=== PATIENT | male | born 1955 | race Caucasian/White ===

== ENCOUNTER 2018-12-27 14:07 | Inpatient (IN) | payer OTHER ==
[2018-12-27 15:44] VITALS: BMI 27.8
--- NOTE | 2018-12-27 17:29 | HP ---
CIWA Score Nausea/Vomitin-No Nausea/No Vomiting Muscle Tremors: 7-Severe,w/o Arm Extended Anxiety: 2 Agitation: 2 Paroxysmal Sweats: No Perspiration Orientation: 0-Oriented Tacttile Disturbances: 0-None Auditory Disturbances: 0-None Visual Disturbances: 0-None Headache: 0-None Present CIWA-Ar Total Score: 11 - Admission Criteria [facility]ASAS Guidelines: Admission for Medically Managed Detox: Requires at least one of the followin. CIWA greater than 12 2. Seizures within the past 24 hours 3. Delirium tremens within the past 24 hours 4. Hallucinations within the past 24 hours 5. Acute intervention needed for co occurring medical disorder 6. Acute intervention needed for co occurring psychiatric disorder 7. Severe withdrawal that cannot be handled at a lower level of care (continued vomiting, continued diarrhea, abnormal vital signs) requiring intravenous medication and/or fluids 8. Admission ROS [facility] - [facility] Allergies/Adverse Reactions: Allergies Allergy/AdvReac Type Severity Reaction Status Date / Time No Known Allergies Allergy Verified 12/27/18 15:40 History of Present Illness: 63 y/o M with history of alcohol abuse presenting to [facility] [place] for detox/ rehab. He has been drinking for the past 49 years. He usually drinks at least 2 pints of vodka daily with last drink 3 days ago. He endorses history of blackouts ( most recent 2 weeks ago) resulting in fall and head trauma (went to hospital workup was negative). NO seizures from withdrawals. Been through detox roughly 30x with last detox 1 yr ago. He has gone through rehab many time with most recent in 2019 at [facility] for 7 month. He left because of "poor care". NO other substance use. Pt feels dizzy, tremoulous, anxious, difficulty sleeping, diarrhea ( 6x) and denies any other symptoms PMH: recent testicular cancer diagnosis. scheduled to see specialist after detox Psych Hx: none PSH: cataract surgery PE: VS Temp : 98.9 BP 148/85 HR 98 RR 18 CIWA 11 Utox BZO General : anxious HEENT: PERRLA, moist membrane Lung: VBS b/l Heart : RRR no MRG Abdomen : +BS , NTND Extremities: unilateral leg swelling on the right, 1+ edema in the R distal leg. 2+ pulses Plan: alcohol detox: librium protocol - Ebola screening Have you traveled outside of the country in the last 21 days: No Have you had contact with anyone from an Ebola affected area: No Do you have a fever: No Patient History - Smoking Cessation Smoking history: Never smoked Initiated information on smoking cessation: No - Substances abused Alcohol Substance route: Oral Frequency: Daily Amount used: 2 pints of voldka Age of first use: 15 Date of last use: 12/25/18 Admission Physical Exam [facility] - Vital Signs Vital Signs: Vital Signs - 24 hr 12/27/18 15:31 Temperature 98.9 F Pulse Rate 98 H Respiratory 18 Rate Blood Pressure 148/85 Cleared for Admission [facility] - Detox or Rehab [facility] Level of Care: Medically Supervised Breathalyzer - Breathalyzer Breathalyzer: 0 Urine Drug Screen - Test Device Lot number: [id number] Expiration date: 09/05/20 - Control Is test valid?: Yes - Results Drug screen NEGATIVE: No Urine drug screen results: BZO-Benzodiazepines Inpatient Rehab Admission - Rehab Decision to Admit Inpatient rehab admission?: No
--- NOTE | 2018-12-27 18:10 | PN ---
Teaching Attending Note Name of Resident: Noelle Otto ATTENDING PHYSICIAN STATEMENT I saw and evaluated the patient. I reviewed the resident's note and discussed the case with the resident. I agree with the resident's findings and plan as documented. SUBJECTIVE:63 y.o. male w/ etoh use , reports 2 pints vodka/ day , reports tremors if not drinking , reports blackouts , most recent 2 weeks ago resulting in fall and head trauma (went to hospital workup was negative). NO seizures from withdrawals. Sober x 7 mo [facility] / denies tobacco use. PMH: recent testicular cancer diagnosis. scheduled to see specialist after detox OBJECTIVE: wnwd , tremulous , anxious , josé miguel hands edema , r foot & ankle pedal edema neg Homans + clubbing x 20 Vital Signs - 24 hr 12/27/18 15:31 Temperature 98.9 F Pulse Rate 98 H Respiratory 18 Rate Blood Pressure 148/85 ASSESSMENT AND PLAN: AUD - Librium detox .
[2018-12-27] MEDS ORDERED: hydrOXYzine PAMOATE 25 MG CAPSULE (FP) PO PRN (18:15)
[2018-12-27] MEDS ORDERED: MAG HYDROX/AL HYDROX/SIMETH 30 ML UNIT-DOSE CUP PO PRN (18:15)
[2018-12-27] MEDS ORDERED: chlordiazePOXIDE HCL 25 MG CAPSULE PO PRN (18:15)
[2018-12-27] MEDS ORDERED: MAGNESIUM HYDROX 2400MG/30ML ORAL SUSPENSION 30 ML CUP PO PRN (18:15)
[2018-12-27] MEDS ORDERED: IBUPROFEN 400 MG TABLET (FP) PO PRN (18:15)
[2018-12-27] MEDS ORDERED: ACETAMINOPHEN 325 MG TABLET (FP) PO PRN ×2 (18:15)
[2018-12-27] MEDS ORDERED: MAGNESIUM CITRATE 300 ML BOTTLE PO PRN (18:15)
[2018-12-27] MEDS ORDERED: BISMUTH SUBSALICYLATE 524 MG/30 ML UD PO PRN (18:15)
[2018-12-27] MEDS ORDERED: chlordiazePOXIDE HCL 25 MG CAPSULE PO ONE (19:15)
[2018-12-27] MEDS: MELATONIN 5 MG TABLETS PO PRN (22:04)
[2018-12-27] MEDS: chlordiazePOXIDE HCL 25 MG CAPSULE PO SCH (22:04)
[2018-12-27] MEDS: THIAMINE HCL 100 MG TABLET (FP) PO SCH (22:04)
[2018-12-28] MEDS: chlordiazePOXIDE HCL 25 MG CAPSULE PO SCH ×4 (05:12→22:21)
[2018-12-28 09:56] LABS: ALBUMIN 3.3 g/dl (3.4-5.0); BILIRUBIN,TOTAL 0.7 mg/dL (0.2-1); BLOOD UREA NITROGEN 6.5 mg/dL (7-18); CALCIUM 9.2 mg/dL (8.5-10.1); CREATININE 0.6 mg/dL (0.55-1.3); POTASSIUM 3.7 mmol/L (3.5-5.1); TOT PROT 6.9 g/dl (6.4-8.2)
[2018-12-28 10:05] LABS: HEMATOCRIT 38.5 % (35.4-49); HEMOGLOBIN 12.6 GM/dL (11.7-16.9); MCH 31.3 pg (25.7-33.7); MCHC 32.7 g/dl (32.0-35.9); MEAN CELL VOLUME 95.6 fl (80-96); MEAN PLT VOLUME 8.4 fl (7.5-11.1); PLATELET COUNT 226 K/MM3 (134-434); RBC 4.03 M/mm3 (4.00-5.60); WHITE BLOOD COUNT 7.1 K/mm3 (4.0-10.0)
[2018-12-28] MEDS: PRENATAL VITAMINS W/ FOLIC ACID TABLET (FP) PO SCH (10:15)
--- NOTE | 2018-12-28 10:30 | PN ---
S CIWA - CIWA Score Nausea/Vomitin-No Nausea/No Vomiting Muscle Tremors: 3 Anxiety: 2 Agitation: 2 Paroxysmal Sweats: 2 Orientation: 0-Oriented Tacttile Disturbances: 0-None Auditory Disturbances: 0-None Visual Disturbances: 0-None Headache: 0-None Present CIWA-Ar Total Score: 9 BHS Progress Note (SOAP) Subjective: sweats shakes cough body aches Objective: 12/28/18 10:28 Vital Signs Temperature 97.9 F 12/28/18 09:37 Pulse Rate 96 H 12/28/18 09:37 Respiratory Rate 16 12/28/18 09:37 Blood Pressure 157/91 12/28/18 09:37 O2 Sat by Pulse Oximetry (%) Laboratory Tests 12/28/18 12/28/18 08:00 08:00 WBC 7.1 RBC 4.03 Hgb 12.6 Hct 38.5 MCV 95.6 MCH 31.3 MCHC 32.7 RDW 16.0 H Plt Count 226 MPV 8.4 Sodium 138 Potassium 3.7 Chloride 105 Carbon Dioxide 26 Anion Gap 7 L BUN 6.5 L Creatinine 0.6 Est GFR (CKD-EPI)AfAm 124.89 Est GFR (CKD-EPI)NonAf 107.76 Random Glucose 78 Calcium 9.2 Total Bilirubin 0.7 AST 67 H ALT 27 Alkaline Phosphatase 47 Total Protein 6.9 Albumin 3.3 L aaox3 lying in bed no acute distress Assessment: 12/28/18 10:29 withdrawals noted lungs assessed, CTA. pt c/o dry non productive cough Plan: continue detox increase fluids robitussin prn ordered. pt is aware
[2018-12-28] MEDS: THIAMINE HCL 100 MG TABLET (FP) PO SCH (22:21)
[2018-12-29] MEDS: chlordiazePOXIDE HCL 25 MG CAPSULE PO SCH ×4 (05:46→22:42)
[2018-12-29] MEDS: MENTHOL/PHENOL 1 EACH UD MM PRN (05:47)
[2018-12-29] MEDS: PRENATAL VITAMINS W/ FOLIC ACID TABLET (FP) PO SCH (10:42)
[2018-12-29] MEDS: guaiFENesin 200 MG/10 ML 10 ML UNIT-DOSE CUPS PO PRN ×2 (10:43→17:36)
--- NOTE | 2018-12-29 16:15 | PN ---
S CIWA - CIWA Score Nausea/Vomitin-No Nausea/No Vomiting Muscle Tremors: 3 Anxiety: 3 Agitation: 0-Normal Activity Paroxysmal Sweats: No Perspiration Orientation: 0-Oriented Tacttile Disturbances: 2-Mild Itch/Numbness/Burn Auditory Disturbances: 0-None Visual Disturbances: 2-Mild Sensitivity Headache: 0-None Present CIWA-Ar Total Score: 10 BHS Progress Note (SOAP) Subjective: Anxious, Body Aches, Tremors. Objective: PATIENT A & O X 3. IN NO ACUTE DISTRESS. 12/29/18 16:14 Vital Signs Temperature 98.2 F 12/29/18 13:40 Pulse Rate 86 12/29/18 13:40 Respiratory Rate 16 12/29/18 13:40 Blood Pressure 140/80 12/29/18 13:40 O2 Sat by Pulse Oximetry (%) Laboratory Tests 12/28/18 12/28/18 12/28/18 08:00 08:00 08:00 WBC 7.1 RBC 4.03 Hgb 12.6 Hct 38.5 MCV 95.6 MCH 31.3 MCHC 32.7 RDW 16.0 H Plt Count 226 MPV 8.4 Sodium 138 Potassium 3.7 Chloride 105 Carbon Dioxide 26 Anion Gap 7 L BUN 6.5 L Creatinine 0.6 Est GFR (CKD-EPI)AfAm 124.89 Est GFR (CKD-EPI)NonAf 107.76 Random Glucose 78 Calcium 9.2 Total Bilirubin 0.7 AST 67 H ALT 27 Alkaline Phosphatase 47 Total Protein 6.9 Albumin 3.3 L RPR Titer Nonreactive LABS NOTED. Assessment: 12/29/18 16:14 WITHDRAWAL SYMPTOMS. ELEVATED AST LEVEL. 12/29/18 16:14 Plan: CONTINUE DETOX.
[2018-12-29] MEDS: THIAMINE HCL 100 MG TABLET (FP) PO SCH (22:41)
[2018-12-30] MEDS ORDERED: chlordiazePOXIDE HCL 10 MG CAPSULE PO PRN
[2018-12-30] MEDS: chlordiazePOXIDE HCL 10 MG CAPSULE PO SCH ×4 (06:51→22:22)
[2018-12-30] MEDS: MENTHOL/PHENOL 1 EACH UD MM PRN (06:52)
[2018-12-30] MEDS: PRENATAL VITAMINS W/ FOLIC ACID TABLET (FP) PO SCH (10:17)
[2018-12-30] MEDS: guaiFENesin 200 MG/10 ML 10 ML UNIT-DOSE CUPS PO PRN ×2 (10:19→22:24)
--- NOTE | 2018-12-30 12:46 | PN ---
S CIWA - CIWA Score Nausea/Vomitin-No Nausea/No Vomiting Muscle Tremors: 2 Anxiety: 1-Mildly Anxious Agitation: 2 Paroxysmal Sweats: 2 Orientation: 0-Oriented Tacttile Disturbances: 0-None Auditory Disturbances: 0-None Visual Disturbances: 0-None Headache: 0-None Present CIWA-Ar Total Score: 7 BHS Progress Note (SOAP) Subjective: Sweating, tremor Objective: 12/30/18 12:42 Last Vital Signs Temp Pulse Resp BP Pulse Ox 97.9 F 118 H 20 103/72 12/30/18 09:25 12/30/18 09:25 12/30/18 09:25 12/30/18 09:25 Pulse 118, most likely due to anxiety, patient seems calm sitting on his bed in his room and denies any complaints Laboratory Tests 12/28/18 12/28/18 12/28/18 08:00 08:00 08:00 WBC 7.1 RBC 4.03 Hgb 12.6 Hct 38.5 MCV 95.6 MCH 31.3 MCHC 32.7 RDW 16.0 H Plt Count 226 MPV 8.4 Sodium 138 Potassium 3.7 Chloride 105 Carbon Dioxide 26 Anion Gap 7 L BUN 6.5 L Creatinine 0.6 Est GFR (CKD-EPI)AfAm 124.89 Est GFR (CKD-EPI)NonAf 107.76 Random Glucose 78 Calcium 9.2 Total Bilirubin 0.7 AST 67 H ALT 27 Alkaline Phosphatase 47 Total Protein 6.9 Albumin 3.3 L RPR Titer Nonreactive Labs reviewed: AST 67 (high) Assessment: 12/30/18 12:43 Withdrawal sxs Noted with mild transaminitis and tachycardia Plan: Continue detox Encouraged PO water intake Mild transaminitis: most likely due to chronic alcoholism, encouraged abstinence from alcohol, follow up with PCP for monitoring Tachycardia: most likely due to anxiety, encouraged relaxation, encouraged vistaril prn, monitor vs. Patient seems calm sitting on his bed in his room and denies any complaints. Consider EKG if still tachycardic.
[2018-12-30] MEDS: THIAMINE HCL 100 MG TABLET (FP) PO SCH (22:22)
[2018-12-31] MEDS: chlordiazePOXIDE HCL 10 MG CAPSULE PO SCH ×2 (05:26→17:36)
--- NOTE | 2018-12-31 09:44 | PN ---
[facility] CIWA - CIWA Score Nausea/Vomitin-No Nausea/No Vomiting Muscle Tremors: 1-None Visible, but [place] Anxiety: 1-Mildly Anxious Agitation: 1-Slight > Activity Paroxysmal Sweats: No Perspiration Orientation: 0-Oriented Tacttile Disturbances: 1-Very Mild Itch/Numbness Auditory Disturbances: 0-None Visual Disturbances: 0-None Headache: 1-Very Mild CIWA-Ar Total Score: 5 BHS Progress Note (SOAP) Subjective: alert,irritable,anxious,interrupted sleep Objective: 12/31/18 09:43 Vital Signs Temperature 97.9 F 12/31/18 09:05 Pulse Rate 82 12/31/18 09:05 Respiratory Rate 17 12/31/18 09:05 Blood Pressure 120/66 12/31/18 09:05 O2 Sat by Pulse Oximetry (%) Assessment: 12/31/18 09:43 withdrawal symptom Plan: continue detox librium regimen,discharge in am
[2018-12-31] MEDS: PRENATAL VITAMINS W/ FOLIC ACID TABLET (FP) PO SCH (10:14)
[2018-12-31] MEDS: guaiFENesin 200 MG/10 ML 10 ML UNIT-DOSE CUPS PO PRN (10:16)
[2018-12-31] MEDS: MELATONIN 5 MG TABLETS PO PRN (22:14)
[2018-12-31] MEDS: THIAMINE HCL 100 MG TABLET (FP) PO SCH (22:14)
[2019-01-01] MEDS ORDERED: chlordiazePOXIDE HCL 10 MG CAPSULE PO ONE (05:00)
--- NOTE | 2019-01-01 08:39 | DS ---
[facility] Summary Admission Date: 12/27/18 Discharge Date: 01/01/19 - History Present History: Alcohol Dependence - Physical Exam Results Vital Signs: Vital Signs Temperature 97.9 F 01/01/19 06:00 Pulse Rate 72 01/01/19 06:00 Respiratory Rate 18 01/01/19 06:00 Blood Pressure 118/72 01/01/19 06:00 O2 Sat by Pulse Oximetry (%) Pertinent Admission Physical Exam Findings: pt arrived in withdrawals Vital Signs Temperature 97.9 F 01/01/19 06:00 Pulse Rate 72 01/01/19 06:00 Respiratory Rate 18 01/01/19 06:00 Blood Pressure 118/72 01/01/19 06:00 O2 Sat by Pulse Oximetry (%) Laboratory Tests 12/28/18 12/28/18 12/28/18 08:00 08:00 08:00 WBC 7.1 RBC 4.03 Hgb 12.6 Hct 38.5 MCV 95.6 MCH 31.3 MCHC 32.7 RDW 16.0 H Plt Count 226 MPV 8.4 Sodium 138 Potassium 3.7 Chloride 105 Carbon Dioxide 26 Anion Gap 7 L BUN 6.5 L Creatinine 0.6 Est GFR (CKD-EPI)AfAm 124.89 Est GFR (CKD-EPI)NonAf 107.76 Random Glucose 78 Calcium 9.2 Total Bilirubin 0.7 AST 67 H ALT 27 Alkaline Phosphatase 47 Total Protein 6.9 Albumin 3.3 L RPR Titer Nonreactive pt is aaox3 ambulating no acute distress no s/s of withdrawals - Treatment Hospital Course: Detox Protocol Followed, Detoxed Safely, Responded well, Discharged Condition Good, Rehab Referral Accepted Patient has Accepted a Rehab Referral to: referred to [facility] - Medication Discharge Medications: Ambulatory Orders NK [No Known Home Medication] 12/27/18 - Diagnosis (1) Alcohol dependence with withdrawal, uncomplicated Current Visit: Yes Status: Chronic - AMA Did Patient Leave Against Medical Advice: No
[2019-01-01 09:11] VITALS: BP 104/57; PULSE 79; TEMP 98.1
[2019-01-01] MEDS: PRENATAL VITAMINS W/ FOLIC ACID TABLET (FP) PO SCH (10:25)
== END 2019-01-01 11:00 | disposition home or self-care (01) | DRG 775 ==
LOC: YASAS 14:07 → Y6N 18:26
PROVIDERS: ADMIT Allergy & Immunology; ATTEND Allergy & Immunology
PROC: HZ2ZZZZ Detoxification Services for Substance Abuse Treatment (ICD-10-PCS; principal; 2018-12-27)
DX: F10.230 Alcohol dependence with withdrawal, uncomplicated (principal); C62.90 Malignant neoplasm of unspecified testis, unspecified whether descended or undescended; R00.0 Tachycardia, unspecified
CPT/HCPCS: 36415; 80053; 85027; 86593

== ENCOUNTER 2022-11-06 14:41 | Inpatient (IN) | payer OTHER ==
[2022-11-06 16:24] VITALS: BMI 30.1
[2022-11-06] MEDS ORDERED: BENZONATATE 200 MG CAPSULE PO PRN (17:28)
[2022-11-06] MEDS ORDERED: ONDANSETRON *ODT* 4 MG TABLET SL PRN (17:28)
[2022-11-06] MEDS ORDERED: LORazepam 1 MG TABLET PO PRN (17:28)
[2022-11-06] MEDS ORDERED: IBUPROFEN 400 MG TABLET (FP) PO PRN (17:28)
[2022-11-06] MEDS ORDERED: DICYCLOMINE HCL 10 MG CAPSULE PO PRN (17:28)
[2022-11-06] MEDS ORDERED: NALOXONE HCL 0.4 MG/ML VIAL IM PRN (17:28)
[2022-11-06] MEDS ORDERED: LOPERAMIDE HCL 2 MG CAPSULE PO PRN (17:28)
[2022-11-06] MEDS ORDERED: BACLOFEN 10 MG TABLET (FP) PO PRN (17:28)
[2022-11-06] MEDS ORDERED: POLYETHYLENE GLYCOL (HEALTHYLAX) 3350 17 GM PACKET PO PRN (17:28)
[2022-11-06] MEDS ORDERED: MAGNESIUM HYDROX 2400MG/30ML ORAL SUSPENSION 30 ML CUP PO PRN (17:28)
[2022-11-06] MEDS ORDERED: ACETAMINOPHEN 325 MG TABLET (FP) PO PRN (17:28)
[2022-11-06] MEDS ORDERED: MAG HYDROX/AL HYDROX/SIMETH 30 ML UNIT-DOSE CUP PO PRN (17:28)
[2022-11-06] MEDS ORDERED: NALOXONE HCL (KLOXXADO) 8 MG SPRAY NS PRN (17:28)
[2022-11-06] MEDS ORDERED: guaiFENesin 600 MG TABLET.ER (FP) PO PRN (17:28)
[2022-11-06] MEDS ORDERED: BENZOCAINE/MENTHOL (CHLORASEPTIC ) LOZENGE MM PRN (17:28)
[2022-11-06] MEDS ORDERED: IBUPROFEN 600 MG TABLET (FP) PO PRN (17:28)
[2022-11-06] MEDS ORDERED: LORazepam 1 MG TABLET ONE ×2 (18:02→18:05)
[2022-11-06] MEDS: hydrOXYzine PAMOATE 25 MG CAPSULE (FP) PO PRN (19:23)
[2022-11-06] MEDS: MELATONIN 5 MG TABLETS PO SCH (22:45)
[2022-11-06] MEDS: LORazepam 1 MG TABLET PO SCH (22:45)
[2022-11-06] MEDS: THIAMINE HCL 100 MG TABLET (FP) PO SCH (22:46)
[2022-11-06] MEDS ORDERED: LORazepam 2 MG TABLET PO SCH (23:00)
[2022-11-07] MEDS: LORazepam 1 MG TABLET PO SCH ×4 (05:43→22:27)
[2022-11-07] MEDS: PRENATAL VITAMINS W/ FOLIC ACID TABLET (FP) PO SCH (10:25)
[2022-11-07 10:31] LABS: HEMATOCRIT 33.2 % (35.4-49); HEMOGLOBIN 10.7 GM/dL (11.7-16.9); MCH 30.9 pg (25.7-33.7); MCHC 32.4 g/dl (32.0-35.9); MEAN CELL VOLUME 95.4 fl (80-96); MEAN PLT VOLUME 8.6 fl (7.5-11.1); PLATELET COUNT 173 10^3/uL (134-434); RBC 3.47 M/mm3 (4.00-5.60); RDW 18.8 % (11.9-15.9); WHITE BLOOD COUNT 5.9 K/mm3 (4.0-10.0)
[2022-11-07 10:46] LABS: POTASSIUM 3.8 mmol/L (3.5-5.1)
[2022-11-07 10:59] LABS: CALCIUM 8.2 mg/dL (8.5-10.1)
[2022-11-07 11:00] LABS: ALBUMIN 2.8 g/dl (3.4-5.0); BLOOD UREA NITROGEN 12.2 mg/dL (7-18)
[2022-11-07 11:03] LABS: CREATININE 0.5 mg/dL (0.55-1.3)
[2022-11-07 11:05] LABS: TOT PROT 6.1 g/dl (6.4-8.2)
[2022-11-07] MEDS: MELATONIN 5 MG TABLETS PO SCH (22:26)
[2022-11-07] MEDS: THIAMINE HCL 100 MG TABLET (FP) PO SCH (22:27)
[2022-11-08] MEDS: LORazepam 1 MG TABLET PO SCH ×4 (05:46→22:26)
[2022-11-08] MEDS: PRENATAL VITAMINS W/ FOLIC ACID TABLET (FP) PO SCH (10:07)
[2022-11-08] MEDS: AMOX TR/POT CLAV 500MG/125MG TABLETS (FP) PO SCH ×2 (11:50→17:21)
[2022-11-08 16:40] LABS: EPI CELLS 1 /uL (0-25.1); HYALINE CASTS 0 /uL (0-3.1); URINE APPEARANCE CLEAR; URINE BACTERIA >9,000 /uL (0-1359); URINE BILIRUBIN NEGATIVE (NEGATIVE); URINE COLOR YELLOW; URINE GLUCOSE (UA) NEGATIVE (NEGATIVE); URINE KETONE TRACE (NEGATIVE); URINE LEUK ESTERASE 2+ (NEGATIVE); URINE NITRITE POSITIVE (NEGATIVE); URINE PROTEIN TRACE (NEGATIVE); URINE RBC 39 /uL (0-23.9); URINE WBC 192 /uL (0-25.8)
[2022-11-08] MEDS: BISMUTH SUBSALICYLATE 524 MG/30 ML PO PRN (17:22)
[2022-11-08] MEDS: THIAMINE HCL 100 MG TABLET (FP) PO SCH (22:26)
[2022-11-08] MEDS: MELATONIN 5 MG TABLETS PO SCH (22:26)
[2022-11-08] MEDS: hydrOXYzine PAMOATE 25 MG CAPSULE (FP) PO PRN (22:27)
[2022-11-09] MEDS ORDERED: LORazepam 0.5 MG TABLET PO PRN
[2022-11-09] MEDS: LORazepam 0.5 MG TABLET PO SCH ×2 (05:24→10:14)
[2022-11-09] MEDS: AMOX TR/POT CLAV 500MG/125MG TABLETS (FP) PO SCH ×2 (07:06→12:25)
[2022-11-09] MEDS: BISMUTH SUBSALICYLATE 524 MG/30 ML PO PRN ×2 (07:17→10:14)
[2022-11-09 09:16] VITALS: RESP 18
[2022-11-09] MEDS: PRENATAL VITAMINS W/ FOLIC ACID TABLET (FP) PO SCH (10:13)
[2022-11-09 12:59] VITALS: BP 127/89; PULSE 122; TEMP 98.1
[2022-11-10] MEDS ORDERED: LORazepam 0.5 MG TABLET PO ONE (05:00)
== END 2022-11-09 01:35 | disposition home or self-care (01) | DRG 897 ==
LOC: YASAS 14:41 → Y3N 18:42
PROVIDERS: ADMIT Allergy & Immunology; ATTEND Surgery
PROC: HZ2ZZZZ Detoxification Services for Substance Abuse Treatment (ICD-10-PCS; principal; 2022-11-06)
DX: F10.230 Alcohol dependence with withdrawal, uncomplicated (principal); N39.0 Urinary tract infection, site not specified; I10 Essential (primary) hypertension; B96.1 Klebsiella pneumoniae [K. pneumoniae] as the cause of diseases classified elsewhere; Z96.0 Presence of urogenital implants; Z85.46 Personal history of malignant neoplasm of prostate; Z91.011 Allergy to milk products
CPT/HCPCS: 36415; 80053; 81003; 85027; 86780; 87086; 87186; 87635